=== PATIENT | female | born 1980 | race Caucasian/White ===

== ENCOUNTER 2018-10-20 13:39 | Emergency (ER) | payer SELFPAY ==
[2018-10-20] MEDS: IBUPROFEN 600 MG TAB PO (15:53)
[2018-10-20] MEDS: PROMETHAZINE/DM (CUP) PO (16:00)
[2018-10-20] MEDS: PROMETHAZINE (1.25 MG/ML) 5 ML CUP PO (16:10)
== END 2018-10-20 17:35 | disposition home or self-care (01) ==
LOC: FTE 13:39
DX: J06.9 Acute upper respiratory infection, unspecified (principal)
CPT/HCPCS: 99283